=== PATIENT | female | born 1960 | race Caucasian/White ===

== ENCOUNTER → 2019-03-16 | Outpatient (CLI) | payer BC ==
--- NOTE | 2019-03-16 16:03 | US ---
EXAMINATION TYPE: US thyroid st tissue head/neck DATE OF EXAM: 03/16/2019 COMPARISON: NONE CLINICAL HISTORY: E04.1 Nontoxic single thyroid nodule. Thyroid nodules, history of thyroid FNA GLAND SIZE: Right Lobe: 4.7 x 1.8 x 1.5 cm Overall Parenchyma: heterogenous Left Lobe: 4.0 x 1.2 x 1.2 cm Overall Parenchyma: heterogeneous Isthmus Thickness: 0.3 cm NODULES RIGHT: # of nodules measured on right: 3 1. 1.3 X 0.9 x 0.8 cm hypoechoic solid nodule at the upper pole with well-defined margins. This nod ule is taller than wide and shows intranodular vascularity. Prior size: no previous 2. 1.5 X 0.9 x 1.4 cm isoechoic solid nodule at the lower pole with well-defined margins. This nodul e is wider than tall and shows intranodular vascularity. Prior size: no previous 3. 0.7 X 0.7 x 0.7 cm hypoechoic solid nodule at the lower pole with well-defined margins. This nodu le is taller than wide and shows intranodular vascularity. Prior size: no previous LEFT: # of nodules measured on left: 1 1. 0.4 X 0.4 x 0.4 cm hypoechoic solid nodule at the lower pole with well-defined margins. This nod ule is wider than tall and shows intranodular vascularity. Prior size: no previous ISTHMUS: # of nodules measured in the isthmus: 0 Bilateral neck scanned, no evidence of lymphadenopathy. IMPRESSION: Bilateral thyroid nodules with the most dominant measuring 1.5 cm on the right appearing solid in nature. This corresponds to a TI-RADS 3 nodule. Mildly Suspicious: FNA if ? 2.5 cm; Follow i f ? 1.5 cm
== END | disposition home or self-care (01) ==
LOC: RADUSWWP 15:28
PROVIDERS: ATTEND Family Medicine
DX: E04.2 Nontoxic multinodular goiter (principal); K11.22 Acute recurrent sialoadenitis
CPT/HCPCS: 76536

== ENCOUNTER → 2019-04-20 | Outpatient (CLI) | payer BC ==
[2019-04-20 16:30] LABS: Thyroid Peroxidase Antibodies 46.3 U/mL (0.0-60.0)
[2019-04-20 16:31] LABS: Prolactin 4.3 ng/mL (2.8-29.2); T4, Free (Free Thyroxine) 1.2 ng/dL (0.80-1.80)
[2019-04-20 17:58] LABS: ACTH 12.3 pg/mL (0.00-45.99)
== END | disposition home or self-care (01) ==
LOC: LABWHC1 11:01
PROVIDERS: ATTEND Internal Medicine Endocrinology, Diabetes & Metabolism
DX: R53.83 Other fatigue (principal)
CPT/HCPCS: 36415; 82024; 82533; 84146; 84439; 84443; 86376